=== PATIENT | female | born 1985 | race Caucasian/White ===

== ENCOUNTER 2019-01-29 12:25 | Inpatient (IN) | payer OTHER ==
[2019-01-29 16:40] LABS: ADD MAN DIFF? NO
[2019-01-29 16:44] LABS: BASOPHIL # 0.1 10^3/ul (0.0-0.1); BASOPHILS % 0.8 % (0.0-2.0); EOSINOPHILS # 0.6 10^3/ul (0.0-0.5); EOSINOPHILS % 5.4 % (0.0-7.0); HEMATOCRIT 39.4 % (37.0-47.0); HEMOGLOBIN 14.2 g/dl (12.0-16.0); LYMPHOCYTES # 3.6 10^3/ul (0.8-2.9); LYMPHOCYTES % 30.9 % (15.0-51.0); MEAN CORPUSCULAR HEMOGLOBIN 30.1 pg (29.0-33.0); MEAN CORPUSCULAR VOLUME 83.5 fl (82.0-101.0); MEAN PLATELET VOLUME 10.6 fl (7.4-10.4); MONOCYTE # 0.9 10^3/ul (0.3-0.9); MONOCYTES % 7.6 % (0.0-11.0); NEUTROPHIL # 6.5 10^3/ul (1.6-7.5); NEUTROPHILS % 54.9 % (39.0-77.0); PLATELET COUNT 337 10^3/UL (140-415); RED BLOOD COUNT 4.72 10^6/ul (4.20-5.40); RED CELL DISTRIBUTION WIDTH 12.3 % (11.5-14.5)
[2019-01-29 16:44] LABS: WHITE BLOOD COUNT 11.8 10^3/ul (4.8-10.8)
[2019-01-29 17:06] LABS: ANION GAP 11 (5-13); BLOOD UREA NITROGEN 11 mg/dl (7-20); CALCIUM 9.4 mg/dl (8.4-10.2); CARBON DIOXIDE 23 mmol/L (21-31); CHLORIDE 107 mmol/L (97-110); CREATININE 0.66 mg/dl (0.44-1.00); Estimated GFR > 60 mL/min (>60); GLUCOSE 86 mg/dl (70-220); SODIUM 141 mmol/L (135-144)
[2019-01-29] MEDS ORDERED: ACETAMINOPHEN 325 MG TAB PO (18:00)
[2019-01-29] MEDS ORDERED: ONDANSETRON 4 MG INJ IV (18:00)
[2019-01-29] MEDS ORDERED: DEXTROSE 5%-0.45% NACL 1,000 ML IV (23:00)
[2019-01-29] MEDS: DEXTROSE 5%-LR 1,000 ML IV (23:30)
[2019-01-30] MEDS: CEFAZOLIN 2 GM/50 ML (PMX) 50 ML IVPB (03:30)
[2019-01-30 03:58] LABS: ADD MAN DIFF? NO
[2019-01-30 04:01] LABS: WHITE BLOOD COUNT 9.7 10^3/ul (4.8-10.8)
[2019-01-30 04:01] LABS: BASOPHIL # 0.1 10^3/ul (0.0-0.1); BASOPHILS % 0.7 % (0.0-2.0); EOSINOPHILS # 0.5 10^3/ul (0.0-0.5); EOSINOPHILS % 5.3 % (0.0-7.0); HEMATOCRIT 36.2 % (37.0-47.0); LYMPHOCYTES # 3.5 10^3/ul (0.8-2.9); LYMPHOCYTES % 35.7 % (15.0-51.0); MEAN CORPUSCULAR HGB CONC 35.9 g/dl (32.0-37.0); MEAN CORPUSCULAR VOLUME 83.6 fl (82.0-101.0); MEAN PLATELET VOLUME 10.6 fl (7.4-10.4); MONOCYTE # 0.9 10^3/ul (0.3-0.9); MONOCYTES % 8.9 % (0.0-11.0); NEUTROPHIL # 4.7 10^3/ul (1.6-7.5); NEUTROPHILS % 48.8 % (39.0-77.0); PLATELET COUNT 309 10^3/UL (140-415); RED BLOOD COUNT 4.33 10^6/ul (4.20-5.40); RED CELL DISTRIBUTION WIDTH 12.3 % (11.5-14.5)
[2019-01-30] MEDS: LACTATED RINGER'S 1,000 ML IV ×5 (04:23→20:55)
[2019-01-30] MEDS ORDERED: NEOSTIGMINE 3 MG/3 ML SYRINGE (16:40)
[2019-01-30] MEDS ORDERED: GLYCOPYRROLATE 0.4 MG INJ (16:40)
[2019-01-30] MEDS ORDERED: ROCURONIUM 50 MG INJ (16:43)
[2019-01-30] MEDS ORDERED: LIDOCAINE 2% (SDV) 5 ML INJ (16:43)
[2019-01-30] MEDS ORDERED: PROPOFOL 100 ML (16:43)
[2019-01-30] MEDS ORDERED: ONDANSETRON 4 MG INJ (16:57)
[2019-01-30] MEDS ORDERED: DEXAMETHASONE 4 MG/ML 5 ML INJ (16:57)
[2019-01-30] MEDS ORDERED: CEFAZOLIN 1 GM INJ (16:59)
[2019-01-30] MEDS: BUPIVACAINE 0.25%/EPI (SDV) 30 ML INJ (17:40)
[2019-01-30] MEDS: HEMOSTATIC MATRIX/ THROMBIN 1 EA SYG ZFS (18:24)
[2019-01-30] MEDS ORDERED: EPHEDrine 25 MG/5 ML SYG IV (19:00)
[2019-01-30] MEDS ORDERED: MIDAZOLAM 1 MG/ML 2 ML INJ IV (19:00)
[2019-01-30] MEDS ORDERED: MEPERIDINE 25 MG INJ IV (19:00)
[2019-01-30] MEDS ORDERED: ONDANSETRON 4 MG INJ IV (19:00)
[2019-01-30] MEDS ORDERED: hydrALAzine 20 MG INJ IV (19:00)
[2019-01-30] MEDS ORDERED: METOCLOPRAMIDE 10 MG INJ IV (19:00)
[2019-01-30] MEDS ORDERED: FENTAnyl 50 MCG/ML VIAL IV ×2 (19:00)
[2019-01-30] MEDS ORDERED: KETOROLAC 30 MG INJ IV (19:00)
[2019-01-30] MEDS ORDERED: ALBUTEROL 0.083% (NEB) 2.5 MG/3 ML AMP HHN (19:00)
[2019-01-30] MEDS ORDERED: LABETALOL HCL 20MG INJ IV (19:00)
[2019-01-30] MEDS ORDERED: DIPHENHYDRAMINE 50 MG INJ IV (19:00)
[2019-01-30] MEDS ORDERED: HYDROmorphONE 1 MG/5 ML IV SYRINGE IV ×3 (19:00)
[2019-01-30] MEDS ORDERED: FENTAnyl 50 MCG/ML VIAL (19:03)
[2019-01-30] MEDS: FENTAnyl 50 MCG/ML VIAL IV (19:40)
[2019-01-31] MEDS: HYDROCODONE/APAP (5/325) TAB PO ×3 (02:29→11:34)
[2019-01-31] MEDS: LACTATED RINGER'S 1,000 ML IV ×2 (07:06→15:42)
[2019-01-31] MEDS: IBUPROFEN 600 MG TAB PO ×2 (08:45→16:33)
== END 2019-01-31 18:10 | disposition home or self-care (01) | DRG 819 ==
LOC: E/R 12:25 → PP2 17:36
PROC: 0UB54ZZ Excision of Right Fallopian Tube, Percutaneous Endoscopic Approach (ICD-10-PCS; principal; 2019-01-30 12:00)
PROC: 10T24ZZ Resection of Products of Conception, Ectopic, Percutaneous Endoscopic Approach (ICD-10-PCS; 2019-01-30 12:00)
PROC: 0UN54ZZ Release Right Fallopian Tube, Percutaneous Endoscopic Approach (ICD-10-PCS; 2019-01-30 12:00)
PROC: 0UN04ZZ Release Right Ovary, Percutaneous Endoscopic Approach (ICD-10-PCS; 2019-01-30 12:00)
DX: O00.101 Right tubal pregnancy without intrauterine pregnancy (principal); N73.6 Female pelvic peritoneal adhesions (postinfective)
CPT/HCPCS: 36415; 76801; 76817; 80048; 84702; 84703; 85025; 86850; 86900; 86901; 88305; 99285-25